=== PATIENT | female | born 1940 | race Caucasian/White ===

== ENCOUNTER 2017-11-03 18:26 | Emergency (ER) | payer OTHER, MEDICAID ==
[~2017-11-03] VITALS: Ht 157.5 cm; Wt 70.3 kg
[~2017-11-03 18:26] MED LIST: ALBU0.63 NEB; ALBU8.5H8 INH; AMLO10TA2 PO; ATOR40TA78 PO; BACL-19 PO; FENO134C PO; HYDR-882 PO; LANS30CA PO; METF500T5 PO; METO25TA35 PO; MOME13HF2 INH; PARO40TA3 PO; PERP2TAB PO; QUIN1TAB15 PO; RIVA20TA PO; TIOT18CA INH
[2017-11-03 18:39] VITALS: BP 153/88
[2017-11-03 19:59] LABS: BASOPHILS # (AUTO) 0.03 x10^3/uL (0-0.1); BASOPHILS % (AUTO) 0 % (0-1); EOSINOPHILS # (AUTO) 0.02 x10^3/uL (0-0.4); EOSINOPHILS % (AUTO) 0 % (1-7); LYMPHOCYTES # (AUTO) 2.33 x10^3/uL (1-3.4); LYMPHOCYTES % (AUTO) 28 % (22-44); MD NO; MEAN CORPUSCULAR HEMOGLOBIN 30.5 pg (27.0-34.8); MEAN CORPUSCULAR VOLUME 92.6 fL (80-100); MEAN PLATELET VOLUME 7.3 fL (7.4-10.4); MONOCYTES # (AUTO) 0.68 x10^3/uL (0.2-0.8); MONOCYTES % (AUTO) 8 % (2-9); NEUTROPHILS # (AUTO) 5.35 x10^3/uL (1.8-6.8); NEUTROPHILS % (AUTO) 64 % (42-75); PLATELET COUNT 319 x10^3/uL (130-400); RED BLOOD COUNT 4.12 x10^6/uL (3.82-5.3); RED CELL DISTRIBUTION WIDTH 14.9 % (9.6-15.2)
[2017-11-03 20:10] LABS: ALANINE AMINOTRANSFERASE 35 U/L (12-78); ALBUMIN 3.4 g/dL (3.4-5.0); ANION GAP 5 mmol/L (5-15); CHLORIDE 106 mmol/L (98-107); CREATININE 0.91 mg/dL (0.55-1.02)
[2017-11-03 20:12] LABS: ALKALINE PHOSPHATASE 55 U/L (45-117); BILIRUBIN,TOTAL 0.4 mg/dL (0.2-1.0); TOTAL PROTEIN 6.5 g/dL (6.4-8.2)
== END 2017-11-03 21:09 | disposition home or self-care (01) ==
LOC: ED 19:46
DX: L03.113 Cellulitis of right upper limb (principal); I10 Essential (primary) hypertension; E11.9 Type 2 diabetes mellitus without complications; E78.5 Hyperlipidemia, unspecified; I25.10 Atherosclerotic heart disease of native coronary artery without angina pectoris; Z87.891 Personal history of nicotine dependence
CPT/HCPCS: 36415; 80053; 85025; 93005; 99285

== ENCOUNTER 2017-11-12 12:09 | Inpatient (IN) | payer OTHER, MEDICAID ==
[~2017-11-12] VITALS: Ht 157.5 cm; Wt 73.0 kg
[2017-11-12] MEDS ORDERED: LORazepam 2 MG/ML, 1ML IVPush ONE (13:00)
[2017-11-12 13:12] LABS: BASOPHILS # (AUTO) 0.11 x10^3/uL (0-0.1); BASOPHILS % (AUTO) 1 % (0-1); EOSINOPHILS # (AUTO) 0.05 x10^3/uL (0-0.4); EOSINOPHILS % (AUTO) 0 % (1-7); LYMPHOCYTES # (AUTO) 2.92 x10^3/uL (1-3.4); LYMPHOCYTES % (AUTO) 20 % (22-44); MD NO; MEAN CORPUSCULAR HEMOGLOBIN 29.9 pg (27.0-34.8); MEAN CORPUSCULAR HGB CONC 32.7 g/dL (32.4-35.8); MEAN CORPUSCULAR VOLUME 91.4 fL (80-100); MEAN PLATELET VOLUME 7.3 fL (7.4-10.4); MONOCYTES # (AUTO) 1.03 x10^3/uL (0.2-0.8); MONOCYTES % (AUTO) 7 % (2-9); NEUTROPHILS # (AUTO) 10.81 x10^3/uL (1.8-6.8); NEUTROPHILS % (AUTO) 73 % (42-75); PLATELET COUNT 418 x10^3/uL (130-400); RED BLOOD COUNT 4.52 x10^6/uL (3.82-5.3); RED CELL DISTRIBUTION WIDTH 14.8 % (9.6-15.2)
[2017-11-12] MEDS ORDERED: LORazepam 2 MG/ML, 1ML ONE (13:17)
[2017-11-12 13:21] LABS: INTERNATIONAL NORMALIZED RATIO 1.08 (0.93-1.1); PROTHROMBIN TIME 11.2 Seconds (9.6-11.5)
[2017-11-12 13:25] LABS: ALBUMIN 3.7 g/dL (3.4-5.0); ANION GAP 13 mmol/L (5-15); CALCIUM 9.5 mg/dL (8.5-10.1); CHLORIDE 101 mmol/L (98-107)
[2017-11-12 13:30] LABS: ALANINE AMINOTRANSFERASE 37 U/L (12-78); ALKALINE PHOSPHATASE 49 U/L (45-117); BILIRUBIN,TOTAL 0.6 mg/dL (0.2-1.0); CREATININE 0.98 mg/dL (0.55-1.02); TOTAL PROTEIN 6.9 g/dL (6.4-8.2); TROPONIN I < 0.015 ng/mL (0.000-0.045)
[2017-11-12 14:04] LABS: MICROSCOPIC NOT IND
[2017-11-12 14:07] LABS: CULTURE INDICATED? NO
[2017-11-12] MEDS: SODIUM CHLORIDE 0.9% 1,000 ML IV SCH (16:44)
[2017-11-12] MEDS ORDERED: INSU100V8 SQ (16:50)
[2017-11-12] MEDS ORDERED: AMIT10TA PO (16:50)
[2017-11-12] MEDS ORDERED: APIX5TAB PO (16:50)
[2017-11-12] MEDS ORDERED: METF500T5 PO (16:50)
[2017-11-12] MEDS ORDERED: SOLI5TAB2 PO (16:50)
[2017-11-12] MEDS ORDERED: QUIN5TAB PO (16:50)
[2017-11-12] MEDS ORDERED: PRED10TA14 PO (16:50)
[2017-11-12] MEDS ORDERED: FLUT1BLS INH (16:50)
[2017-11-12] MEDS ORDERED: SITA25TA PO (16:50)
[2017-11-12] MEDS ORDERED: INSU100C5 SQ-INSULIN (16:52)
[2017-11-12] MEDS ORDERED: ONDANSETRON ODT 4 MG PO PRN (17:00)
[2017-11-12] MEDS ORDERED: ACETAMINOPHEN 325 MG TABLET PO PRN (17:00)
[2017-11-12] MEDS ORDERED: DOCUSATE 100 MG CAPSULE PO PRN (17:00)
[2017-11-12] MEDS ORDERED: BISACODYL 10 MG SUPP PR PRN (17:00)
[2017-11-12] MEDS ORDERED: INSULIN GLARGINE 100 UNITS/ML, PEN SQ-INSULIN SCH (17:00)
[2017-11-12] MEDS ORDERED: OXYcodone IR 5MG TABLET PO PRN (17:00)
[2017-11-12] MEDS ORDERED: morphine SULFATE 10 MG/ML, 1ML IVPush PRN (17:00)
[2017-11-12] MEDS ORDERED: POLYETHYLENE GLYCOL 17 GM PACKET PO PRN (17:00)
[2017-11-12 17:07] VITALS: BP 139/78
[2017-11-12 17:31] LABS: FREE T4 (FREE THYROXINE) 1.18 ng/dL (0.76-1.46); THYROID STIMULATING HORMONE 2.58 mIU/L (0.358-3.740)
[2017-11-12] MEDS: ONDANSETRON 2MG/ML, 2ML IVPush PRN (18:05)
[2017-11-12] MEDS: methylPREDNISolone SOD SUCC 125 MG/2 ML IVPush SCH (18:05)
[2017-11-12 18:48] LABS: HEMOGLOBIN A1C 7.7 % (4.2-6.3)
[2017-11-12 19:06] VITALS: BP 135/74
[2017-11-12] MEDS: FLUTICASONE/VILANTEROL 200-25MCG/INH INH SCH (21:44)
[2017-11-12] MEDS: APIXABAN 5 MG TABLET PO SCH (21:44)
[2017-11-12] MEDS: TEMAZEPAM 15 MG CAPSULE PO PRN (21:44)
[2017-11-12] MEDS: ATORVASTATIN 40 MG TABLET PO SCH (21:44)
[2017-11-12] MEDS: INSULIN GLARGINE 100 UNITS/ML, PEN SQ-INSULIN SCH (21:45)
[2017-11-12] MEDS: PROMETHAZINE 25 MG/ML, 1ML IM PRN (22:21)
[2017-11-12] MEDS: INSULIN LISPRO 100 UNITS/ML, PEN SQ-INSULIN SCH (22:22)
[2017-11-12 22:33] LABS: TROPONIN I < 0.015 ng/mL (0.000-0.045)
[2017-11-13] MEDS: methylPREDNISolone SOD SUCC 125 MG/2 ML IVPush SCH ×4 (00:03→18:04)
[2017-11-13 03:08] VITALS: BP 154/74
[2017-11-13] MEDS: SODIUM CHLORIDE 0.9% 1,000 ML IV SCH (03:19)
[2017-11-13] MEDS: ONDANSETRON 2MG/ML, 2ML IVPush PRN ×3 (04:03→16:29)
[2017-11-13] MEDS ORDERED: MAGNESIUM SULFATE PMX 2GM/50ML 50 ML IV ONE (04:30)
[2017-11-13 05:16] LABS: BASOPHILS # (AUTO) 0.02 x10^3/uL (0-0.1); BASOPHILS % (AUTO) 0 % (0-1); EOSINOPHILS % (AUTO) 0 % (1-7); LYMPHOCYTES # (AUTO) 0.95 x10^3/uL (1-3.4); LYMPHOCYTES % (AUTO) 15 % (22-44); MD NO; MEAN CORPUSCULAR HEMOGLOBIN 30.2 pg (27.0-34.8); MEAN CORPUSCULAR VOLUME 91.6 fL (80-100); MEAN PLATELET VOLUME 7.3 fL (7.4-10.4); MONOCYTES # (AUTO) 0.07 x10^3/uL (0.2-0.8); MONOCYTES % (AUTO) 1 % (2-9); NEUTROPHILS # (AUTO) 5.37 x10^3/uL (1.8-6.8); NEUTROPHILS % (AUTO) 84 % (42-75); PLATELET COUNT 387 x10^3/uL (130-400); RED BLOOD COUNT 4.23 x10^6/uL (3.82-5.3); RED CELL DISTRIBUTION WIDTH 14.5 % (9.6-15.2)
[2017-11-13 05:35] LABS: CHLORIDE 106 mmol/L (98-107)
[2017-11-13 05:50] LABS: ALANINE AMINOTRANSFERASE 33 U/L (12-78); ALBUMIN 3.3 g/dL (3.4-5.0); ALKALINE PHOSPHATASE 45 U/L (45-117); ANION GAP 7 mmol/L (5-15); BILIRUBIN,TOTAL 0.2 mg/dL (0.2-1.0); CALCIUM 8.6 mg/dL (8.5-10.1); CREATININE 0.67 mg/dL (0.55-1.02); TOTAL PROTEIN 6.2 g/dL (6.4-8.2); TRIGLYCERIDES 105 mg/dL (50-200)
[2017-11-13 05:51] LABS: CHOL/HDL RATIO 2.2; CHOLESTEROL, TOTAL 142 mg/dL (140-239); HDL CHOL % 45 % (28-40); HDL CHOLESTEROL (DIRECT) 64 mg/dL (40-60); LDL CHOLESTEROL,CALCULATED 57 mg/dL (54-169); LDL/HDL RATIO 0.9 (0.5-3.0); TROPONIN I < 0.015 ng/mL (0.000-0.045); VLDL CHOLESTEROL 21 mg/dL (0-25)
[2017-11-13 08:20] VITALS: BP 177/84
[2017-11-13] MEDS: INSULIN LISPRO 100 UNITS/ML, PEN SQ-INSULIN SCH ×4 (08:25→21:01)
[2017-11-13] MEDS ORDERED: REGADENOSON 0.4 MG/5 ML SYRINGE ONE (08:53)
[2017-11-13] MEDS: hydrALAzine 20 MG/ML, 1ML IVPush PRN (08:58)
[2017-11-13] MEDS: PROMETHAZINE 25 MG/ML, 1ML IM PRN (08:59)
[2017-11-13] MEDS: TEMPLATE NON-FORMULARY MED. (Tiotropium Bromide** (Spiriva**) 18 MCG) INH SCH (09:00)
[2017-11-13] MEDS: FENOFIBRATE 145 MG TABLET PO SCH (09:00)
[2017-11-13] MEDS: QUINAPRIL 5MG TABLET PO SCH (09:00)
[2017-11-13] MEDS: ALBUTEROL SULFATE 2.5 MG/3 ML NPPB SCH ×2 (09:00→13:52)
[2017-11-13] MEDS: APIXABAN 5 MG TABLET PO SCH ×2 (09:00→20:57)
[2017-11-13] MEDS: SITAGLIPTIN 25MG TABLET PO SCH (09:00)
[2017-11-13] MEDS: OMEPRAZOLE 20 MG CAPSULE.DR PO SCH (09:00)
[2017-11-13] MEDS ORDERED: METOPROLOL TARTRATE 25 MG TABLET PO SCH (09:00)
[2017-11-13] MEDS: PAROXETINE 20 MG TABLET PO SCH (09:00)
[2017-11-13 11:47] VITALS: BP 147/71
[2017-11-13 15:45] VITALS: BP 122/67
[2017-11-13] MEDS: LOSARTAN 25MG TABLET PO SCH (16:29)
[2017-11-13] MEDS: CARVEDILOL 6.25 MG TABLET PO SCH (18:04)
[2017-11-13 18:46] VITALS: BP 123/57
[2017-11-13] MEDS: FLUTICASONE/VILANTEROL 200-25MCG/INH INH SCH (20:56)
[2017-11-13] MEDS: TEMAZEPAM 15 MG CAPSULE PO PRN (20:57)
[2017-11-13] MEDS: ATORVASTATIN 40 MG TABLET PO SCH (20:57)
[2017-11-13] MEDS: INSULIN GLARGINE 100 UNITS/ML, PEN SQ-INSULIN SCH (21:04)
[2017-11-14] MEDS: methylPREDNISolone SOD SUCC 125 MG/2 ML IVPush SCH ×3 (00:40→12:46)
[2017-11-14 01:48] VITALS: BP 130/69
[2017-11-14 06:16] VITALS: BP 153/80
[2017-11-14] MEDS: CARVEDILOL 6.25 MG TABLET PO SCH ×2 (06:18→17:51)
[2017-11-14] MEDS: ALBUTEROL SULFATE 2.5 MG/3 ML NPPB SCH (07:09)
[2017-11-14 07:35] LABS: MEAN CORPUSCULAR HEMOGLOBIN 29.8 pg (27.0-34.8); MEAN CORPUSCULAR HGB CONC 32.6 g/dL (32.4-35.8); MEAN CORPUSCULAR VOLUME 91.4 fL (80-100); MEAN PLATELET VOLUME 7.2 fL (7.4-10.4); PLATELET COUNT 405 x10^3/uL (130-400); RED BLOOD COUNT 4.14 x10^6/uL (3.82-5.3); RED CELL DISTRIBUTION WIDTH 14.6 % (9.6-15.2)
[2017-11-14 07:40] VITALS: BP 160/71
[2017-11-14 07:45] LABS: ALBUMIN 3.3 g/dL (3.4-5.0); ANION GAP 9 mmol/L (5-15); CALCIUM 8.7 mg/dL (8.5-10.1); CHLORIDE 105 mmol/L (98-107); CREATININE 0.82 mg/dL (0.55-1.02)
[2017-11-14 07:59] LABS: BASOPHILS # (AUTO) 0.03 x10^3/uL (0-0.1); BASOPHILS % (AUTO) 0 % (0-1); EOSINOPHILS % (AUTO) 0 % (1-7); LYMPHOCYTES # (AUTO) 1.11 x10^3/uL (1-3.4); LYMPHOCYTES % (AUTO) 10 % (22-44); MD SCAN; MONOCYTES # (AUTO) 0.43 x10^3/uL (0.2-0.8); MONOCYTES % (AUTO) 4 % (2-9); NEUTROPHILS % (AUTO) 87 % (42-75)
[2017-11-14] MEDS: PAROXETINE 20 MG TABLET PO SCH (08:01)
[2017-11-14] MEDS: SITAGLIPTIN 25MG TABLET PO SCH (08:01)
[2017-11-14] MEDS: APIXABAN 5 MG TABLET PO SCH ×2 (08:01→20:15)
[2017-11-14] MEDS: INSULIN LISPRO 100 UNITS/ML, PEN SQ-INSULIN SCH ×4 (08:02→20:18)
[2017-11-14] MEDS: TEMPLATE NON-FORMULARY MED. (Tiotropium Bromide** (Spiriva**) 18 MCG) INH SCH (08:02)
[2017-11-14] MEDS: FENOFIBRATE 145 MG TABLET PO SCH (08:02)
[2017-11-14] MEDS: QUINAPRIL 5MG TABLET PO SCH (08:02)
[2017-11-14] MEDS: LOSARTAN 25MG TABLET PO SCH (08:02)
[2017-11-14] MEDS: OMEPRAZOLE 20 MG CAPSULE.DR PO SCH (08:02)
[2017-11-14 13:29] VITALS: BP 155/72
[2017-11-14] MEDS: MECLIZINE 12.5 MG TABLET PO PRN (13:42)
[2017-11-14 14:32] LABS: BASOPHILS # (AUTO) 0.04 x10^3/uL (0-0.1); BASOPHILS % (AUTO) 0 % (0-1); EOSINOPHILS % (AUTO) 0 % (1-7); LYMPHOCYTES % (AUTO) 8 % (22-44); MD NO; MEAN CORPUSCULAR HEMOGLOBIN 30.1 pg (27.0-34.8); MEAN CORPUSCULAR HGB CONC 32.8 g/dL (32.4-35.8); MEAN CORPUSCULAR VOLUME 91.9 fL (80-100); MEAN PLATELET VOLUME 7.7 fL (7.4-10.4); MONOCYTES % (AUTO) 2 % (2-9); NEUTROPHILS # (AUTO) 11.87 x10^3/uL (1.8-6.8); NEUTROPHILS % (AUTO) 90 % (42-75); PLATELET COUNT 422 x10^3/uL (130-400); RED BLOOD COUNT 4.34 x10^6/uL (3.82-5.3); RED CELL DISTRIBUTION WIDTH 14.7 % (9.6-15.2)
[2017-11-14 18:33] VITALS: BP 149/72
[2017-11-14] MEDS: FLUTICASONE/VILANTEROL 200-25MCG/INH INH SCH (20:14)
[2017-11-14] MEDS: ATORVASTATIN 40 MG TABLET PO SCH (20:15)
[2017-11-14] MEDS: INSULIN GLARGINE 100 UNITS/ML, PEN SQ-INSULIN SCH (20:18)
[2017-11-14] MEDS: TEMAZEPAM 15 MG CAPSULE PO PRN (20:35)
[2017-11-15 02:27] VITALS: BP 154/84
[2017-11-15 03:40] VITALS: BP_SYST 177; BP_SYST 182; BP_DIAS 101; BP_DIAS 83
[2017-11-15] MEDS: hydrALAzine 20 MG/ML, 1ML IVPush PRN (03:55)
[2017-11-15 04:20] VITALS: BP_SYST 149; BP_SYST 167; BP_DIAS 82
[2017-11-15 04:44] LABS: BASOPHILS # (AUTO) 0.04 x10^3/uL (0-0.1); BASOPHILS % (AUTO) 0 % (0-1); EOSINOPHILS # (AUTO) 0.02 x10^3/uL (0-0.4); EOSINOPHILS % (AUTO) 0 % (1-7); LYMPHOCYTES # (AUTO) 1.94 x10^3/uL (1-3.4); LYMPHOCYTES % (AUTO) 16 % (22-44); MD NO; MEAN CORPUSCULAR HEMOGLOBIN 30.3 pg (27.0-34.8); MEAN CORPUSCULAR VOLUME 91.6 fL (80-100); MEAN PLATELET VOLUME 7.2 fL (7.4-10.4); MONOCYTES # (AUTO) 0.86 x10^3/uL (0.2-0.8); MONOCYTES % (AUTO) 7 % (2-9); NEUTROPHILS # (AUTO) 9.34 x10^3/uL (1.8-6.8); NEUTROPHILS % (AUTO) 77 % (42-75); PLATELET COUNT 392 x10^3/uL (130-400); RED BLOOD COUNT 4.23 x10^6/uL (3.82-5.3); RED CELL DISTRIBUTION WIDTH 14.4 % (9.6-15.2)
[2017-11-15 05:12] LABS: CHLORIDE 107 mmol/L (98-107)
[2017-11-15 05:16] LABS: ALBUMIN 3.3 g/dL (3.4-5.0); ANION GAP 6 mmol/L (5-15); CALCIUM 8.8 mg/dL (8.5-10.1); CREATININE 0.84 mg/dL (0.55-1.02)
[2017-11-15] MEDS: CARVEDILOL 6.25 MG TABLET PO SCH (05:59)
[2017-11-15] MEDS: INSULIN LISPRO 100 UNITS/ML, PEN SQ-INSULIN SCH ×2 (07:00→11:00)
[2017-11-15 07:09] VITALS: BP 168/85
[2017-11-15] MEDS: ALBUTEROL SULFATE 2.5 MG/3 ML NPPB SCH (07:45)
[2017-11-15] MEDS: MECLIZINE 12.5 MG TABLET PO PRN (08:47)
[2017-11-15] MEDS: ONDANSETRON 2MG/ML, 2ML IVPush PRN (08:47)
[2017-11-15] MEDS: OMEPRAZOLE 20 MG CAPSULE.DR PO SCH (08:47)
[2017-11-15] MEDS: QUINAPRIL 5MG TABLET PO SCH (08:48)
[2017-11-15] MEDS: SITAGLIPTIN 25MG TABLET PO SCH (08:48)
[2017-11-15] MEDS: TEMPLATE NON-FORMULARY MED. (Tiotropium Bromide** (Spiriva**) 18 MCG) INH SCH (08:48)
[2017-11-15] MEDS: FENOFIBRATE 145 MG TABLET PO SCH (08:48)
[2017-11-15] MEDS: PAROXETINE 20 MG TABLET PO SCH (08:48)
[2017-11-15] MEDS: APIXABAN 5 MG TABLET PO SCH (08:48)
[2017-11-15] MEDS ORDERED: LOSARTAN 50MG TABLET PO SCH (09:00)
[2017-11-15 10:49] VITALS: BP_SYST 122; BP_SYST 132; BP_DIAS 77
[2017-11-15 10:50] VITALS: BP 120/67
[2017-11-15] MEDS ORDERED: PRED10TA PO (17:19)
== END 2017-11-15 18:10 | disposition home or self-care (01) | DRG 191 ==
LOC: ED 14:58 → EDIP 15:37 → 4WST 17:21
PROVIDERS: ADMIT Hospitalist; ATTEND Hospitalist
PROC: 0T9B70Z Drainage of Bladder with Drainage Device, Via Natural or Artificial Opening (ICD-10-PCS; principal; 2017-11-12)
DX: J44.1 Chronic obstructive pulmonary disease with (acute) exacerbation (principal); J96.10 Chronic respiratory failure, unspecified whether with hypoxia or hypercapnia; R55 Syncope and collapse; Z86.711 Personal history of pulmonary embolism; E11.51 Type 2 diabetes mellitus with diabetic peripheral angiopathy without gangrene; F17.290 Nicotine dependence, other tobacco product, uncomplicated; I25.10 Atherosclerotic heart disease of native coronary artery without angina pectoris; H53.8 Other visual disturbances; E78.5 Hyperlipidemia, unspecified; F41.1 Generalized anxiety disorder; G47.00 Insomnia, unspecified; I10 Essential (primary) hypertension; K21.9 Gastro-esophageal reflux disease without esophagitis; Z79.4 Long term (current) use of insulin; Z79.899 Other long term (current) drug therapy; Z90.710 Acquired absence of both cervix and uterus
CPT/HCPCS: 0399T; 36415; 70450; 70551; 71045; 71275; 74177; 76856; 78452; 80048; 80053; 80061; 81003; 82040; 82962; 83036; 83690; 83735; 83880; 84439; 84443; 84484; 85025; 85610; 85730; 93005; 93306; 94640; 96374; J2405; J2550; J2785; J7613; Q0162; A9502; C9898; J0360; J1815; J2060; J2930; J3475; J7030; J7512